=== PATIENT | male | born 1990 | race African-American/Black ===

== ENCOUNTER 2017-02-21 14:18 | Emergency (ER) | payer SELFPAY ==
[~2017-02-21] VITALS: Ht 177.8 cm; Wt 90.7 kg
[2017-02-21 14:18] VITALS: BP 166/76
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
--- NOTE | 2017-02-22 08:56 | EKG ---
[facility] [address] [place] [address] Test Date: 2017-02-21 Test Time: 14:22:35 Pat Name: EDGAR FELDER Department: Room: Gender: M Extra Hand: : 1990 Requested By: MEGAN JACKSON Order Number: [id number] Reading MD: Measurements Intervals [place] Rate: 172 P: CT: QRS: 56 QRSD: 70 T: 57 QT: 294 QTc: 498 Interpretive Statements SUPRAVENTRICULAR TACHYCARDIA NON SPECIFIC ST-T ABNORMALITY (ELEVATION) OTHERWISE NORMAL ECG RI6.01 Unconfirmed report No previous ECG available for comparison
== END 2017-02-21 16:12 | disposition home or self-care (01) ==
LOC: ER 14:18
DX: F19.129 Other psychoactive substance abuse with intoxication, unspecified (principal); R00.0 Tachycardia, unspecified
CPT/HCPCS: 93005; 99283-25